=== PATIENT | male | born 1965 | race Caucasian/White ===

== ENCOUNTER 2017-01-21 08:11 | Emergency (ER) | payer SELFPAY ==
[2017-01-21] MEDS ORDERED: Tamsulosin HCl 0.4 MG CAP ONE (08:29)
[2017-01-21] MEDS ORDERED: Ondansetron ODT 4 MG TAB ONE (08:29)
[2017-01-21] MEDS ORDERED: Ketorolac Tromethamine 60 MG/2 ML VIAL ONE (08:29)
== END 2017-01-21 08:37 | disposition home or self-care (01) ==
LOC: MADERS 08:11
DX: N20.0 Calculus of kidney (principal)
CPT/HCPCS: 96372; J1885; Q0162